=== PATIENT | female | born 1980 | race Caucasian/White ===

== ENCOUNTER 2017-08-12 14:03 | Emergency (ER) | payer BC ==
[~2017-08-12] VITALS: Ht 152.4 cm; Wt 64.4 kg
[2017-08-12 14:03] VITALS: BP 137/99
[2017-08-12] MEDS ORDERED: LIDOCAINE 1% INJ 50 ML MDV IJ ONE ×2 (14:27→14:30)
[2017-08-12] MEDS ORDERED: TDAP [DIPH/PERTUSSIS/TET] 0.5 ML VIAL IM ONE ×2 (14:30→14:39)
[2017-08-12] MEDS ORDERED: LIDOCAINE HCL/PF 1% 30 ML SDV ONE (14:39)
== END 2017-08-12 16:02 | disposition home or self-care (01) ==
LOC: ER 14:05
DX: L02.612 Cutaneous abscess of left foot (principal); Z88.1 Allergy status to other antibiotic agents; Z91.040 Latex allergy status
CPT/HCPCS: 10060; 90471; 90715; 99283; 99406; A4606; J3490; Z7610; A6402

== ENCOUNTER 2017-09-30 17:51 | Emergency (ER) | payer BC ==
[~2017-09-30] VITALS: Ht 152.4 cm; Wt 64.4 kg
[2017-09-30 17:51] VITALS: BP 139/95
== END 2017-09-30 18:21 | disposition home or self-care (01) ==
LOC: ER 17:54
DX: T82.838A Hemorrhage due to vascular prosthetic devices, implants and grafts, initial encounter (principal); Z88.1 Allergy status to other antibiotic agents; Z91.040 Latex allergy status; Z88.8 Allergy status to other drugs, medicaments and biological substances; Y92.89 Other specified places as the place of occurrence of the external cause
CPT/HCPCS: 99284; A4606; Z7610